=== PATIENT | female | born 1985 | race African-American/Black ===

== ENCOUNTER 2023-05-31 07:25 | Emergency (ER) | payer MEDICAID ==
[~2023-05-31] VITALS: Ht 170.2 cm; Wt 110.0 kg
[2023-05-31] MEDS ORDERED: LIDOCAINE 1% HCL (LOCAL ANESTH.) INJ 20ML MDV IJ ONE (08:00)
[2023-05-31 08:02] VITALS: BP 153/93; PULSE 87; RESP 16; TEMP 98.3; O2SAT 98
[2023-05-31] MEDS ORDERED: BACDST PO (08:41)
[2023-05-31] MEDS ORDERED: CEPH500T PO (08:41)
[2023-05-31] MEDS ORDERED: NABU-72 PO (08:41)
== END 2023-05-31 08:55 | disposition home or self-care (01) ==
LOC: ER 07:25
DX: L02.411 Cutaneous abscess of right axilla (principal)
CPT/HCPCS: 10060; 87205